=== PATIENT | female | born 1955 | race Asian ===

== ENCOUNTER → 2022-10-06 | Outpatient (CLI) | payer MEDICARE | END | disposition home or self-care (01) | LOC: RADMN 12:23 | PROVIDERS: ATTEND Internal Medicine | DX: I51.7 Cardiomegaly (principal); M85.88 Other specified disorders of bone density and structure, other site; M47.814 Spondylosis without myelopathy or radiculopathy, thoracic region; R07.9 Chest pain, unspecified | CPT/HCPCS: 71046 ==